=== PATIENT | female | born 1940 | race Caucasian/White ===

== ENCOUNTER 2017-09-20 00:29 | Emergency (ER) | payer OTHER, BC ==
[~2017-09-20] VITALS: Ht 167.6 cm; Wt 92.9 kg
[~2017-09-20 00:29] MED LIST: BENTYL20 MG PO; HUMALOG100 UNITS/ SC; LANTUS 3 M100 UNITS/ SC; NORVASC5 MG PO; PROTONIX40 MG PO; VICOPROFEN1 TABLET PO; ZESTRIL,PRINIVI10 M1 PO; Zocor PO; Zoloft PO; Zovirax PO
[2017-09-20 02:29] LABS: EOSINOPHIL (%) 2.9 % (0-5); EOSINOPHIL COUNT 0.2 K/uL (0-0.3); HEMATOCRIT 36.8 % (36.0-46.0); IMMATURE GRANULOCYTE (%) 0.3 % (0.0-0.7); INSTRUMENT ABS NEUTROPHIL CT 4.3 K/uL; LYMPHOCYTE COUNT 2.1 K/uL (1.0-2.8); MCH 34.2 PG (29.0-34.0); MCHC 33.2 G/DL (30.0-36.0); MCV 103.1 FL (83-99); MEAN PLAT.VOLUME 9.1 uM^3 (9.5-12.4); MONOCYTE (%) 8.6 % (3-12); MONOCYTE COUNT 0.6 K/uL (0-0.8); NEUTROPHIL (%) 59.1 % (45-76); NEUTROPHIL COUNT 4.3 K/uL (1.8-6.4); PLATELET COUNT 276 K/uL (156-360); RBC DIS.WIDTH-CV 12.8 % (11.8-14.6); RBC DIS.WIDTH-SD 48.7 % (39-53); RED BLOOD COUNT 3.57 M/uL (3.80-5.20); WHITE BLOOD COUNT 7.2 K/uL (4.1-10.2)
[2017-09-20 02:37] LABS: CHLORIDE 103 mEq/L (99-109); SODIUM 135 mEq/L (136-147)
[2017-09-20 02:40] LABS: GLUCOSE 257 mg/dL (70-99)
[2017-09-20 02:41] LABS: ANION GAP 11 MEQ/L (2-14); TOTAL BILIRUBIN 0.4 mg/dL (0.0-1.0)
[2017-09-20 02:43] LABS: ALKALINE PHOSPHATASE 68 IU/L (3-129); GFR ESTIMATE (CALCULATED) > 59 mL/min/; SERUM ETHYL ALCOHOL 84 mg/dL
[2017-09-20 02:44] LABS: UREA NITROGEN (BUN) 9 mg/dL (9-23)
[2017-09-20 02:45] LABS: DIRECT BILIRUBIN 0.2 mg/dL (0.0-0.3)
[2017-09-20 02:50] LABS: TROP-I INTERPRETATION NEGATIVE; TROPONIN-I < 0.01 ng/mL (0.0-0.30)
[2017-09-20 04:14] VITALS: BP 142/77
== END 2017-09-20 04:16 | disposition home or self-care (01) ==
LOC: EME → EDBD 00:29 → EME 00:29
PROVIDERS: Emergency Medicine
DX: S09.90XA Unspecified injury of head, initial encounter (principal); F10.129 Alcohol abuse with intoxication, unspecified; Y90.4 Blood alcohol level of 80-99 mg/100 ml; M54.2 Cervicalgia; W10.8XXA Fall (on) (from) other stairs and steps, initial encounter; Y92.008 Other place in unspecified non-institutional (private) residence as the place of occurrence of the external cause; I10 Essential (primary) hypertension; E11.9 Type 2 diabetes mellitus without complications; K21.9 Gastro-esophageal reflux disease without esophagitis; F41.9 Anxiety disorder, unspecified; F32.9 Major depressive disorder, single episode, unspecified
CPT/HCPCS: 70450; 71020; 72125; 80048; 80076; 84484; 85025; 93005; 99281; 99285; G0480